=== PATIENT | male | born 2000 | race Caucasian/White ===

== ENCOUNTER 2023-03-22 07:59 | Emergency (ER) | payer MEDICAID ==
[2023-03-22] MEDS ORDERED: Midazolam 1 MG/ML 2 ML SDV IV ONE (08:00)
[2023-03-22] MEDS ORDERED: Propofol 200 MG/20 ML SDV IV ONE (08:00)
[2023-03-22] MEDS ORDERED: Sodium Chloride 0.9% 10 ML Syringe FLUSH PRN (08:10)
[2023-03-22] MEDS ORDERED: Diltiazem 25 MG/5 ML SDV IVPUSH ONE ×2 (08:13→09:24)
[2023-03-22 08:24] LABS: BASOPHILS PERCENT AUTO 0.5 % (0.3-3.8); EOSINOPHILS ABSOLUTE AUTO 0.1 x10-3/uL (0.0-0.6); EOSINOPHILS PERCENT AUTO 1.2 % (0.1-6.8); HEMATOCRIT 45.5 % (38.3-50.1); HEMOGLOBIN 15.8 g/dL (12.9-17.7); LYMPHOCYTES ABSOLUTE AUTO 2.9 x10-3/uL (0.5-4.5); MEAN CORPUSCULAR HEMOGLOBIN 29.7 pg (27.0-33.3); MEAN CORPUSCULAR HGB CONC 34.8 g/dL (28.7-35.3); MEAN CORPUSCULAR VOLUME 85.4 fL (80.8-98.7); MEAN PLATELET VOLUME 7.2 fL (6.7-11.0); MONOCYTES PERCENT AUTO 9.9 % (5.5-15.2); NEUTROPHILS PERCENT AUTO 59.4 % (40.3-71.8); PLATELET COUNT,PLT 330 x10(3)uL (117-477); RED BLOOD CELL COUNT 5.33 x10(6)uL (3.90-5.90); RED CELL DISTRIBUTION WIDTH 12.8 % (12.4-15.0); WHITE BLOOD CELL COUNT,WBC 10.1 x10-3/uL (3.2-10.1)
[2023-03-22] MEDS ORDERED: Metoprolol Succinate 50 MG Tab.ER PO ONE (08:30)
[2023-03-22 08:31] LABS: BLOOD UREA NITROGEN,BUN 11 mg/dL (7-18); BUN/CREATININE RATIO 13.8 (9-20); CALCIUM 9.4 mg/dL (8.6-10.2); CARBON DIOXIDE,CO2 27 mmol/L (21-32); CHLORIDE,CL 103 mmol/L (100-110); CREATININE 0.8 mg/dL (0.70-1.30); ESTIMATED GFR 128 mL/min (>60); GLUCOSE RANDOM 112 mg/dL (80-116); SODIUM,NA 140 mmol/L (135-145)
[2023-03-22 08:37] LABS: ALANINE AMINOTRANSFERASE,ALT 36 U/L (12-36); ALBUMIN 3.9 g/dL (3.5-5.2); ALKALINE PHOSPHATASE 101 IU/L (56-112); ASPARTATE AMNIOTRANSFERASE,AST 18 IU/L (5-25); BILIRUBIN TOTAL 0.2 mg/dL (0.1-1.3); MAGNESIUM 1.8 mg/dL (1.8-2.5); PROTEIN TOTAL,TP 7.7 g/dL (6.0-8.0)
[2023-03-22 08:39] LABS: INR 1.02 (1.00-1.24); PROTHROMBIN TIME 10.5 sec (9.0-11.1); PTT,PARTIAL THROMBOPLSTIN TIME 33.9 SECONDS (24.4-33.2)
[2023-03-22] MEDS ORDERED: Sodium Chloride 0.9% 1,000 ML IV SCH ×2 (08:45→11:15)
[2023-03-22] MEDS ORDERED: Diltiazem 125 MG in Sodium Chloride 0.9% 100 ML IV SCH (11:00)
[2023-03-22] MEDS ORDERED: Digoxin 500 MCG/2 ML Amp IVPUSH ONE ×2 (12:57→16:00)
== END 2023-03-22 21:50 | disposition home or self-care (01) ==
LOC: FB.ED 07:59
DX: I48.0 Paroxysmal atrial fibrillation (principal); Z88.5 Allergy status to narcotic agent; Z86.16 Personal history of COVID-19
CPT/HCPCS: 80053; 83735; 83880; 84484; 85025; 85610; 85730; 93005; 96361; 96365; 96366; 96375; 96376; 99285; A9270; J1160; J2250; J2704; J3490; J7030

== ENCOUNTER 2024-08-22 22:17 | Emergency (ER) | payer OTHER ==
[2024-08-22] MEDS ORDERED: Sodium Chloride 0.9% 10 ML Syringe FLUSH PRN (22:52)
[2024-08-22] MEDS: Diltiazem 25 MG/5 ML SDV IVPUSH ONE ×3 (23:01→23:56)
[2024-08-22 23:11] LABS: BLOOD UREA NITROGEN,BUN 14 mg/dL (7-18); CALCIUM 9.4 mg/dL (8.6-10.2); CARBON DIOXIDE,CO2 30 mmol/L (21-32); CHLORIDE,CL 103 mmol/L (100-110); ESTIMATED GFR 108 mL/min (>60); GLUCOSE RANDOM 140 mg/dL (80-116); POTASSIUM,K 3.2 mmol/L (3.5-5.3); SODIUM,NA 143 mmol/L (135-145)
[2024-08-22 23:16] LABS: BASOPHILS ABSOLUTE AUTO 0.1 x10-3/uL (0.0-0.3); BASOPHILS PERCENT AUTO 0.5 % (0.3-3.8); EOSINOPHILS ABSOLUTE AUTO 0.2 x10-3/uL (0.0-0.6); EOSINOPHILS PERCENT AUTO 1.4 % (0.1-6.8); HEMATOCRIT 46.4 % (38.3-50.1); LYMPHOCYTES ABSOLUTE AUTO 3.9 x10-3/uL (0.5-4.5); LYMPHOCYTES PERCENT AUTO 28.1 % (15.8-45.3); MEAN CORPUSCULAR HEMOGLOBIN 29.7 pg (27.0-33.3); MEAN CORPUSCULAR HGB CONC 34.4 g/dL (28.7-35.3); MEAN CORPUSCULAR VOLUME 86.5 fL (80.8-98.7); MEAN PLATELET VOLUME 7.7 fL (6.7-11.0); MONOCYTES ABSOLUTE AUTO 1.1 x10-3/uL (0.0-1.2); MONOCYTES PERCENT AUTO 7.5 % (5.5-15.2); NEUTROPHILS ABSOLUTE AUTO 8.8 x10-3/uL (1.7-6.9); NEUTROPHILS PERCENT AUTO 62.5 % (40.3-71.8); PLATELET COUNT,PLT 324 x10(3)uL (117-477); RED BLOOD CELL COUNT 5.36 x10(6)uL (3.90-5.90); RED CELL DISTRIBUTION WIDTH 12.8 % (12.4-15.0)
[2024-08-22 23:17] LABS: A/G RATIO 1.2; ALANINE AMINOTRANSFERASE,ALT 33 U/L (12-36); ALBUMIN 4.1 g/dL (3.5-5.2); ALKALINE PHOSPHATASE 87 IU/L (56-112); ASPARTATE AMNIOTRANSFERASE,AST 14 IU/L (5-25); BILIRUBIN TOTAL 0.2 mg/dL (0.1-1.3); PROTEIN TOTAL,TP 7.5 g/dL (6.0-8.0)
[2024-08-23] MEDS: Sodium Chloride 0.9% 1,000 ML IV SCH (00:02)
[2024-08-23] MEDS: Metoprolol Tartrate 50 MG Tab PO ONE (00:17)
[2024-08-23] MEDS: Potassium Chloride 20 MEQ Tab.ER PO ONE (01:10)
[2024-08-23 01:23] LABS: INR 1.08 (1.00-1.24); PROTHROMBIN TIME 11.1 sec (9.0-11.1); PTT,PARTIAL THROMBOPLSTIN TIME 31.7 SECONDS (24.4-33.2)
[2024-08-23] MEDS ORDERED: Diltiazem 125 MG in Sodium Chloride 0.9% 100 ML IV SCH (01:30)
[2024-08-23 01:34] LABS: LACTIC ACID 1.4 mmol/L (0.4-2.0)
[2024-08-23] MEDS: Diltiazem 125 MG in Sodium Chloride 0.9% 100 ML IV SCH (01:40)
[2024-08-23] MEDS: Metoprolol Tartrate 5 MG/5 ML SDV IVPUSH ONE (01:55)
== END 2024-08-23 05:20 ==
LOC: FB.ED 22:17
DX: I48.91 Unspecified atrial fibrillation (principal); E87.6 Hypokalemia; Z86.16 Personal history of COVID-19; Z88.8 Allergy status to other drugs, medicaments and biological substances
CPT/HCPCS: 36415; 80053; 83605; 83735; 83880; 84484; 85025; 85610; 85730; 93005; 96361; 96365; 96375; 96376; 99285-25; A9270-GY; J3490; J7030

== ENCOUNTER 2024-08-27 14:23 | Emergency (ER) | payer OTHER ==
[2024-08-27] MEDS ORDERED: Sodium Chloride 0.9% 10 ML Syringe FLUSH PRN (14:56)
[2024-08-27] MEDS ORDERED: Naloxone 0.4 MG/ML SDV IVPUSH PRN (15:17)
[2024-08-27] MEDS: Ondansetron 4 MG/2 ML SDV IVPUSH ONE (15:30)
[2024-08-27] MEDS: HYDROmorphone 2 MG/ML SDV IVPUSH ONE (15:30)
[2024-08-27 15:40] LABS: BASOPHILS PERCENT AUTO 0.3 % (0.3-3.8); EOSINOPHILS PERCENT AUTO 0.3 % (0.1-6.8); HEMATOCRIT 42.7 % (38.3-50.1); HEMOGLOBIN 14.7 g/dL (12.9-17.7); LYMPHOCYTES ABSOLUTE AUTO 1.8 x10-3/uL (0.5-4.5); LYMPHOCYTES PERCENT AUTO 13.4 % (15.8-45.3); MEAN CORPUSCULAR HEMOGLOBIN 29.6 pg (27.0-33.3); MEAN CORPUSCULAR HGB CONC 34.4 g/dL (28.7-35.3); MEAN PLATELET VOLUME 7.5 fL (6.7-11.0); MONOCYTES ABSOLUTE AUTO 0.8 x10-3/uL (0.0-1.2); MONOCYTES PERCENT AUTO 5.7 % (5.5-15.2); NEUTROPHILS ABSOLUTE AUTO 10.8 x10-3/uL (1.7-6.9); NEUTROPHILS PERCENT AUTO 80.3 % (40.3-71.8); PLATELET COUNT,PLT 299 x10(3)uL (117-477); RED BLOOD CELL COUNT 4.96 x10(6)uL (3.90-5.90); RED CELL DISTRIBUTION WIDTH 12.8 % (12.4-15.0); WHITE BLOOD CELL COUNT,WBC 13.5 x10-3/uL (3.2-10.1)
[2024-08-27 15:47] LABS: BLOOD UREA NITROGEN,BUN 13 mg/dL (7-18); BUN/CREATININE RATIO 18.6 (9-20); CALCIUM 9.2 mg/dL (8.6-10.2); CARBON DIOXIDE,CO2 30 mmol/L (21-32); CHLORIDE,CL 105 mmol/L (100-110); CREATININE 0.7 mg/dL (0.70-1.30); EST CRCL DRUG DOSING (CG) 157.43 mL/min; ESTIMATED GFR 132 mL/min (>60); GLUCOSE RANDOM 108 mg/dL (80-116); SODIUM,NA 144 mmol/L (135-145)
[2024-08-27 15:48] LABS: C-REACTIVE PROTEIN 0.63 mg/dL (<0.50)
[2024-08-27 15:53] LABS: A/G RATIO 1.3; ALANINE AMINOTRANSFERASE,ALT 34 U/L (12-36); ALKALINE PHOSPHATASE 77 IU/L (56-112); ASPARTATE AMNIOTRANSFERASE,AST 18 IU/L (5-25); BILIRUBIN TOTAL 0.3 mg/dL (0.1-1.3); MAGNESIUM 1.7 mg/dL (1.8-2.5); PROTEIN TOTAL,TP 7.2 g/dL (6.0-8.0)
[2024-08-27] MEDS: Sodium Chloride 0.9% 1,000 ML IV ONE (15:54)
[2024-08-27 15:55] LABS: BILIRUBIN,URINE NEGATIVE (NEGATIVE); GLUCOSE,URINE NORMAL (NORMAL); KETONES,URINE NEGATIVE (NEGATIVE); LEUKOCYTE ESTERASE,URINE NEGATIVE (NEGATIVE); NITRITE,URINE NEGATIVE (NEGATIVE); OCCULT BLOOD,URINE NEGATIVE (NEGATIVE); PROTEIN,URINE NEGATIVE (NEGATIVE); UROBILINOGEN,URINE NORMAL (NEGATIVE)
[2024-08-27 15:57] LABS: APPEARANCE,URINE CLEAR (CLEAR); BACTERIA,URINE OCCASIONAL (NS); COLOR,URINE YELLOW (YELLOW); RBC,URINE NOT SEEN (0-5); SQUAMOUS EPITHELIAL CELLS,UR OCCASIONAL (NS,R,O); WBC,URINE 0-5 (0-5)
[2024-08-27] MEDS: Iopamidol 755 Mg/ML 100 ML Bottle IV SCH (15:59)
== END 2024-08-27 17:15 ==
LOC: FB.ED 14:23
DX: K42.0 Umbilical hernia with obstruction, without gangrene (principal); K43.0 Incisional hernia with obstruction, without gangrene; I48.91 Unspecified atrial fibrillation; E66.9 Obesity, unspecified; Z86.16 Personal history of COVID-19; Z90.49 Acquired absence of other specified parts of digestive tract; Z88.5 Allergy status to narcotic agent; Z79.01 Long term (current) use of anticoagulants; Z79.899 Other long term (current) drug therapy; Z68.39 Body mass index [BMI] 39.0-39.9, adult
CPT/HCPCS: 36415; 74177; 80053; 81001; 83690; 83735; 85025; 86140; 96361; 96374; 96375; 99285; J1171; J2405; J7030; Q9967